=== PATIENT | male | born 1985 | race Caucasian/White ===

== ENCOUNTER 2021-04-03 15:57 | Emergency (ER) | payer OTHER ==
[~2021-04-03] VITALS: Ht 177.8 cm; Wt 113.4 kg
[2021-04-03] MEDS ORDERED: LORA-259 PO (16:17)
[2021-04-03 16:50] VITALS: BP 122/82
== END 2021-04-03 17:01 | disposition home or self-care (01) ==
LOC: ER 16:03
DX: F41.9 Anxiety disorder, unspecified (principal); F32.9 Major depressive disorder, single episode, unspecified; Z79.899 Other long term (current) drug therapy